=== PATIENT | female | born 1940 | race Caucasian/White ===

== ENCOUNTER 2019-01-27 10:05 | Outpatient (CLI) | payer MEDICARE, OTHER, SELFPAY ==
--- NOTE | 2019-01-27 10:01 | DI.RAD_ITS ---
SYMPTOM/DIAGNOSIS: PAIN RIGHT SHOULDER: Joint space narrowing, articular sclerosis and periarticular hypertrophic spurring are demonstrated. Also degenerative changes involving the AC joint are noted. SUMMARY: Severe DJD right shoulder.
== END 2019-01-27 10:25 ==
PROVIDERS: Referring Provider Nurse Practitioner Family; Visit Provider Orthopaedic Surgery
DX: M25.511 Pain in right shoulder (principal); M19.011 Primary osteoarthritis, right shoulder
CPT/HCPCS: 99201; 99213; 73030

== ENCOUNTER 2019-02-02 12:46 | Day surgery (SDC) | payer MEDICARE, OTHER, SELFPAY ==
--- NOTE | 2019-02-02 12:26 | DI.RAD_ITS ---
SYMPTOMS/DIAGNOSIS: OSTEOARTHRITIS, RIGHT SHOULDER C-ARM FLUOROSCOPY OF THE RIGHT SHOULDER: Fluoroscopy Time: 1.8 sec C-arm fluoroscopy was utilized by Dr. Carson. Hard copies show a needle overlying superior aspect of the glenohumeral joint.
[2019-02-02 13:02] VITALS: BP 136/79; PULSE 96; RESP 18; TEMP 36.5; O2SAT 93
[2019-02-02] MEDS: methylPREDNISolone ACETATE 80 MG/ML VIAL (14:21)
--- NOTE | 2019-02-02 14:28 | W.PM.DSUDISC ---
Discharge Plan Disposition Patient Disposition: HOME Condition: Good Discharge Details Reason For Visit: Fluoroscopically guided R shoulder injection Attending Provider: Brando Carson Primary Care Provider: ,Local Home Meds and New Rx's Prescriptions: New meloxicam [Mobic] 15 mg tablet 15 mg PO DAILY Qty: 30 RF: 3 Continued Combigan 0.2-0.5 % drops 1 drp OP BID RF: 0 latanoprost 0.005 % drops 1 drp OP QPM RF: 0 multivitamin capsule 1 cap PO DAILY RF: 0 cholecalciferol (vitamin D3) 2,000 unit capsule 2,000 unit PO DAILY RF: 0 atorvastatin [Lipitor] 10 MG tablet 10 mg PO DAILY RF: 0 lisinopril 10 MG tablet 10 mg PO DAILY RF: 0 Discharge Instructions Additional Instructions: Apply ice bag to R shoulder 4 times/day for 1 hour each time over next 2 days. Limit use of R arm for next 48 hours. After 48 hours, use R arm as much as your discomfort allows. Take the meloxican as ordered once/day for next 30 days. This may help the arthritis pain in your R shoulder. Follow up with in one month. Referrals: Brando Carson MD [ [facility]] - (f/u in one month) Activity:: Activity as Tolerated Diet:: As Tolerated Discharge Orders Discharge Orders: Discharge Order (Routine); Ordered 02/02/19 Ordered By: Brando Carson DS: Diagnosis Discharge Diagnosis (1) Osteoarthritis of shoulder: Status: Acute
--- NOTE | 2019-02-03 06:55 | ROE_ITS ---
REPORT OF OPERATIVE PROCEDURE DATE OF PROCEDURE February 02, 2019 PREOPERATIVE DIAGNOSIS Osteoarthritis right shoulder. POSTOPERATIVE DIAGNOSIS Osteoarthritis right shoulder. PROCEDURE Fluoroscopically guided intraarticular right shoulder injection. ANESTHESIA Local. SURGEON Brando Carson M.D. INDICATIONS This is an 79-year-old white female with osteoarthritis of the right shoulder. So far, it has not res ponded to conservative measures. Although she is a candidate for either a total shoulder arthroplasty or a hemiarthroplasty. She does not desire this procedure at this time. She wishes to try first, an intraarticular steroid injection to try to get some better relief of pain. The risks and complications of the procedure were explained to the patient in detail preoperatively. PROCEDURE DESCRIPTION The patient was placed supine on the Operating Table. The C-arm was brought into position for an AP v iew of the right shoulder. A ring forceps was then placed over the anterior humerus and moved until t he C-arm fluoroscopy showed the ring forceps to be directly over the shoulder joint. The skin was mar ked and then prepped with saline solution. An #18-guage spinal needle was then inserted directly ante rior to the shoulder joint. Once again, the C-arm is used to confirm that the needle was in the shoul andrea joint. 15 cc of 0.5% Marcaine with epinephrine solution along with 80 mg of Depo-Medrol was then injected through the spinal needle into the shoulder joint. The spinal needle was removed and direct pressure was applied to the puncture wound to stop the bleeding. I then sonal up an additional 10 cc o f 0.5% Marcaine with epinephrine solution, prepped the skin with alcohol and instilled 10 cc Marcaine with epinephrine solution into the subacromial space for additional analgesia. The puncture wound wa s then dressed with a Band-Aid. I then passively moved her shoulder through a range of motion to dist ribute the medication. I then had her sit up on the operating table and actively flex and extend her shoulder and then internally rotate her arm. Her motion was dramatically improved with no pain. She i s now able to internally rotate to the belt line posteriorly. She was discharged to the [facility] in good condition. The patient was given instructions to rest her shoulder for 48 hours before resuming activities as to lerated. She is given a prescription for meloxicam 15 mg p.o. daily to take for a month. She is encou raged to ice her shoulder four times a day for an hour each time over the next 48 hours to help with pain and swelling. She will followup with Dr. Carson in one month.
== END 2019-02-02 15:05 | disposition home or self-care (01) ==
PROVIDERS: Visit Provider Orthopaedic Surgery
PROC: (CPT 20610; principal; 2019-02-02 14:30)
DX: M19.011 Primary osteoarthritis, right shoulder (principal); M25.511 Pain in right shoulder
CPT/HCPCS: 20610; 77002; 73020; J1040

== ENCOUNTER → 2019-03-03 10:49 | Outpatient (BNVA) | payer MEDICARE, OTHER, SELFPAY | PROVIDERS: PCP Internal Medicine; Visit Provider Orthopaedic Surgery | DX: M19.011 Primary osteoarthritis, right shoulder (principal); Z98.890 Other specified postprocedural states; I10 Essential (primary) hypertension | CPT/HCPCS: 99213 ==

== ENCOUNTER 2020-02-20 11:40 | Outpatient (CLI) | payer MEDICARE, OTHER, SELFPAY ==
--- NOTE | 2020-02-20 10:45 | DI.RAD_ITS ---
EXAM: XR SHOULDER RT COMPLETE 2+V CLINICAL HISTORY: right shoulder pain. TECHNIQUE: 2D digital imaging was performed. COMPARISON: CR XR shoulder RT complete 2+V from 01/27/2019 FINDINGS: Severe degenerative changes are seen in the right shoulder particularly at the glenohumeral joint. F indings include marked joint space narrowing, subchondral sclerosis and periarticular spurring. Mode rate degenerative changes are also noted at the acromioclavicular joint. The bones are intact. No a cute fracture or dislocation is seen. The soft tissues are unremarkable. IMPRESSION: Severe osteoarthritis of the right shoulder. DATA REPOSITORY: RADIATION DOSE DELIVERED:
== END 2020-02-20 12:00 ==
PROVIDERS: PCP Internal Medicine; Referring Provider Internal Medicine; Visit Provider Student in an Organized Health Care Education/Training Program
DX: M25.511 Pain in right shoulder (principal); M19.011 Primary osteoarthritis, right shoulder; M75.21 Bicipital tendinitis, right shoulder
CPT/HCPCS: 20550; 99204; 99215; 73030; J1030

== ENCOUNTER → 2021-02-19 09:08 | Outpatient (BNVA) | payer MEDICARE, OTHER, SELFPAY | PROVIDERS: PCP Internal Medicine; Referring Provider Internal Medicine; Visit Provider Student in an Organized Health Care Education/Training Program | DX: M75.21 Bicipital tendinitis, right shoulder (principal); M19.011 Primary osteoarthritis, right shoulder | CPT/HCPCS: 99214; 99215 ==

== ENCOUNTER 2023-04-01 18:26 | Outpatient (REF) | payer MEDICARE, SELFPAY ==
[2023-04-01 20:56] LABS: Abs Immature Grans 0.02 10^3/uL (0.0-0.06); Absolute Basophil Count 0.09 10^3/uL (0.0-0.2); Absolute Eosinophil Count 0.29 10^3/uL (0.0-0.7); Absolute Lymphocyte Count 1.48 10^3/uL (1.2-3.4); Absolute Monocyte Count 0.61 10^3/uL (0.1-0.8); Absolute Neutrophil Count 4.22 10^3/uL (1.2-6.7); Basophils % 1.3; Eosinophils % 4.3; HCT 44.6 % (36.0-46.0); HGB 14.6 g/dL (11.2-15.7); Immature Grans % 0.3; Lymphocytes % 22.1; MCH 29.1 pg (27.0-33.0); MCHC 32.7 % (32.0-36.0); MCV 89 fL (80-95); MPV 11.2 fL (8.0-11.0); Monocytes % 9.1; Neutrophils % 62.9; Platelet Count 289 10^3/uL (130-400); RBC 5.01 10^6/uL (3.93-5.22); RDW 13.5 % (11.7-14.6); RDW-SD 44.2 fL; WBC 6.71 10^3/uL (4.4-10.8)
[2023-04-01 21:28] LABS: ALT 31 U/L (14-59); AST 24 U/L (15-37); Albumin 3.8 g/dL (3.4-5.0); Alkaline Phosphatase 113 U/L (46-116); Anion Gap 9.5 mmol/L (3-11); BUN 12 mg/dL (7-18); Bilirubin, Total 0.5 mg/dL (0.2-1.0); CO2 25.5 mmol/L (21.0-32.0); CREATININE 0.7 mg/dL (0.55-1.02); Chloride 105 mmol/L (98-107); Glucose 98 mg/dL (74-106); NT-proBNP 118 pg/mL (<300); Sodium 140 mmol/L (136-145); Total Protein 7.3 g/dL (6.4-8.2)
== END 2023-04-01 18:27 | disposition home or self-care (01) ==
LOC: NCHCN 18:26
PROVIDERS: PCP Internal Medicine; Visit Provider Family Medicine
DX: R05.8 Other specified cough (principal)
CPT/HCPCS: 80053; 83880; 85025

== ENCOUNTER → 2023-04-02 12:22 | Outpatient (CLI) | payer MEDICARE, SELFPAY ==
--- NOTE | 2023-04-02 | DI.RAD_ITS ---
Exam(s) XR CHEST 2V PA LATERAL EXAM: XR CHEST 2V PA LATERAL CLINICAL HISTORY: COUGH,R05.8. TECHNIQUE: 2D digital imaging was performed. COMPARISON: No exams were available for comparison FINDINGS: 2 views: Heart size is normal. The mediastinum is not widened. Left lung clear. There is platelike atelectasis in the right lung base. Reverse right shoulder prosthesis noted. IMPRESSION: Subsegmental platelike atelectasis versus scarring evident right lung base. DATA REPOSITORY: RADIATION DOSE DELIVERED:
== END ==
PROVIDERS: PCP Internal Medicine; Visit Provider Family Medicine
DX: J98.11 Atelectasis (principal); R05.8 Other specified cough
CPT/HCPCS: 71046